=== PATIENT | female | born 1960 | race Caucasian/White ===

== ENCOUNTER 2018-11-16 07:26 | Day surgery (SDC) | payer OTHER ==
[~2018-11-16] VITALS: Ht 160 cm; Wt 60.9 kg
[~2018-11-16 07:26] MED LIST: ALPR.25 PO; BUSP5 PO; CETI5 PO; TRAZ50 PO; VAGIFEM10 MCG VAG
--- NOTE | 2018-11-16 08:57 | NUR ---
11/16/18 0857 Ashley Rodriguez INTRODUCED MYSELF TO PT. OK FOR DR TO TALK WITH . [facility].FLL PT LIASION.
== END 2018-11-16 10:05 | disposition home or self-care (01) ==
LOC: ORSCSDS 07:26
PROVIDERS: Internal Medicine Gastroenterology
PROC: 0DBL8ZX Excision of Transverse Colon, Via Natural or Artificial Opening Endoscopic, Diagnostic (ICD-10-PCS; principal; 2018-11-16 09:00)
DX: Z12.11 Encounter for screening for malignant neoplasm of colon (principal); D12.3 Benign neoplasm of transverse colon; E78.5 Hyperlipidemia, unspecified; K57.30 Diverticulosis of large intestine without perforation or abscess without bleeding; F41.8 Other specified anxiety disorders; Z87.891 Personal history of nicotine dependence; Z79.899 Other long term (current) drug therapy
CPT/HCPCS: 88305; J0330; J1980; J2405; J7120